=== PATIENT | female | born 1975 | race Caucasian/White ===

== ENCOUNTER → 2021-05-18 | Outpatient (CLI) | payer OTHER ==
[~2021-05-18] MED LIST: AMOX500 PO; CITA10S PO; CRUTCH4 USE; HYDACE5 PO; [UNRECOGNIZED DRUG - OTHER]
== END ==
LOC: LAB 13:10 → LAB SHORT 13:10
DX: L08.9 Local infection of the skin and subcutaneous tissue, unspecified (principal)
CPT/HCPCS: 87070; 87205

== ENCOUNTER → 2024-11-11 | Outpatient (CLI) | payer OTHER ==
[2024-11-11 10:59] LABS: BASOPHILS ABSOLUTE AUTO 0.07 K/mm3 (0.00-0.23); BASOPHILS PERCENT AUTO 1 % (0-2); EOSINOPHILS ABSOLUTE AUTO 0.25 K/mm3 (0.00-0.68); EOSINOPHILS PERCENT AUTO 2 % (0-6); Hematocrit 40.5 % (33.0-51.0); Hemoglobin 13.8 g/dL (11.5-16.0); IMMATURE GRAN ABSOLUTE AUTO 0.05 K/mm3 (0.00-0.10); IMMATURE GRAN PERCENT AUTO 1 % (0-1); LYMPHOCYTES ABSOLUTE AUTO 2.46 K/mm3 (0.84-5.20); LYMPHOCYTES PERCENT AUTO 24 % (21-46); MONOCYTES ABSOLUTE AUTO 0.62 K/mm3 (0.16-1.47); MONOCYTES PERCENT AUTO 6 % (4-13); Mean Corpuscular HGB 26.4 pg (26.0-34.0); Mean Corpuscular HGB Conc 34.1 g/dL (31.5-36.5); Mean Corpuscular Volume 77 fL (80-100); Mean Platelet Volume 11.4 fL (9.1-12.4); NEUTROPHILS ABSOLUTE AUTO 7.04 K/mm3 (1.96-9.15); NEUTROPHILS PERCENT AUTO 67 % (41-73); Platelet Count 265 K/mm3 (150-400); RDW Coefficient Variation 14.3 % (11.7-14.2); RDW Standard Deviation 39.8 fL (35.1-46.3); Red Blood Cell Count 5.23 M/mm3 (3.80-5.20); White Blood Cell Count 10.49 K/mm3 (4.00-11.30)
[2024-11-11 12:52] LABS: Albumin, Blood 3.6 g/dL (3.4-5.0); Albumin/Globulin Ratio 0.9 (0.8-1.8); Bilirubin, Total 0.6 mg/dL (0.1-1.0); Bun/Creatinine Ratio 9.6 (12.0-20.0); Calcium, Blood 8.9 mg/dL (8.5-10.1); Creatinine, Blood 0.73 mg/dL (0.40-1.00); Potassium, Blood 3.9 mmol/L (3.5-5.5); Total Protein, Blood 7.6 g/dL (6.4-8.2)
== END | disposition home or self-care (01) ==
LOC: LAB 10:42 → LAB SHORT 10:42
PROVIDERS: Physician Assistant
DX: R10.9 Unspecified abdominal pain (principal)
CPT/HCPCS: 80053; 83690; 85025

== ENCOUNTER → 2024-11-12 | Outpatient (CLI) | payer OTHER ==
[2024-11-14 01:02] LABS: H. PYLORI BREATH TEST Negative (Negative)
== END ==
LOC: LAB SHORT 07:09 → LAB 07:09
PROVIDERS: Pathology Dermatopathology
DX: K21.9 Gastro-esophageal reflux disease without esophagitis (principal)
CPT/HCPCS: 83013

== ENCOUNTER → 2025-03-13 | Outpatient (CLI) | payer OTHER ==
[2025-03-13 20:16] LABS: Bacterial Vaginosis PCR Negative (NEGATIVE); Candida Group, PCR NOT DETECTED (NOT DETECT); Candida glabrata-krusei, PCR NOT DETECTED (NOT DETECT)
[2025-03-13 20:47] LABS: Chlamydia Trachomatis Vaginal NOT DETECTED (NOT DETECT); Neisseria Gonorrhoea Vaginal NOT DETECTED (NOT DETECT)
== END | disposition home or self-care (01) ==
LOC: LAB SHORT 18:09 → LAB 18:09
PROVIDERS: Family Medicine
DX: N89.8 Other specified noninflammatory disorders of vagina (principal)
CPT/HCPCS: 81515; 87491; 87591

== ENCOUNTER 2025-04-03 08:01 | Observation (INO) | payer OTHER ==
[~2025-04-03] VITALS: Ht 157.5 cm; Wt 114.3 kg
[2025-04-03] VITALS (17 sets, daily range): BP systolic 135–169; BP diastolic 70–100
[2025-04-03 08:57] LABS: Hematocrit 21.7 % (33.0-51.0); Hemoglobin 7.1 g/dL (11.5-16.0); Mean Corpuscular HGB Conc 32.7 g/dL (31.5-36.5); Mean Corpuscular Volume 80 fL (80-100); NRBC ABSOLUTE 1.38 K/mm3 (0.00-0.02); NRBC Auto 6.2 /100 WBC (0.0-0.2); RDW Coefficient Variation 17.7 % (11.7-14.2); RDW Standard Deviation 45.1 fL (35.1-46.3)
[2025-04-03 09:09] LABS: Alanine Aminotransfer (ALT/SGP 27.0 U/L (12-78); Albumin, Blood 3.3 g/dL (3.4-5.0); Albumin/Globulin Ratio 0.8 (0.8-1.8); Anion Gap 10.0 mmol/L (3-11); Aspartate Aminotrans (AST/SGOT 18.0 U/L (12-37); Bilirubin, Total 0.4 mg/dL (0.1-1.0); Blood Urea Nitrogen 6.0 mg/dL (8-24); CO2, Blood 23.0 mmol/L (21-32); Calcium, Blood 8.4 mg/dL (8.5-10.1); Chloride, Blood 106.0 mmol/L (98-108); Creatinine, Blood 0.8 mg/dL (0.40-1.00); Globulin, Blood 4.0 g/dL (2.2-4.0); Glucose, Blood 143.0 mg/dL (70-99); Potassium, Blood 4.4 mmol/L (3.5-5.5); Sodium, Blood 135.0 mmol/L (136-145); Total Protein, Blood 7.3 g/dL (6.4-8.2)
[2025-04-03] MEDS ORDERED: NS 1,000 ML IV SCH (09:10)
[2025-04-03 09:25] LABS: BAND PERCENT MAN 1 % (0-8); BASOPHILS ABSOLUTE MAN 0.00 K/mm3 (0.00-0.23); BASOPHILS PERCENT MAN 0 % (0-2); EOSINOPHILS ABSOLUTE MAN 0.66 K/mm3 (0.00-0.68); EOSINOPHILS PERCENT MAN 3 % (0-6); LYMPHOCYTES ABSOLUTE MAN 6.01 K/mm3 (0.84-5.20); LYMPHOCYTES PERCENT MAN 27 % (21-46); METAMYELOCYTE ABSOLUTE MAN 0.44 K/mm3 (0.00-0.00); METAMYELOCYTE PERCENT MAN 2 % (0-0); MONOCYTES ABSOLUTE MAN 0.44 K/mm3 (0.16-1.47); MONOCYTES PERCENT MAN 2 % (4-13); NEUTROPHILS ABSOLUTE MAN 14.69 K/mm3 (1.96-9.15); SEG NEUTROPHILS PERCENT MAN 65 % (41-73)
[2025-04-03 09:26] LABS: Platelet Count 114 K/mm3 (150-400)
[2025-04-03] MEDS ORDERED: Sod Ferric Gluc Complx/Sucrose 125 MG in NS 100 ML IV ONE (10:00)
[2025-04-03] MEDS ORDERED: BUPROPION XL150 M1 PO (13:14)
[2025-04-03] MEDS ORDERED: FentaNYL Citrate 50 MCG/ML 2 ML Injection ONE (13:35)
[2025-04-03] MEDS ORDERED: Midazolam HCl 1MG / ML 2ML Vial ONE (13:35)
[2025-04-03] MEDS ORDERED: Phenylephrine HCl 100 MCG/ML-NS 10MLSYR (1MG/10ML) ONE (13:43)
[2025-04-03] MEDS ORDERED: Dexamethasone Sod Phos 10 MG/ML 1ML VIAL ONE (13:43)
[2025-04-03] MEDS ORDERED: Ondansetron HCl 2 MG / ML 2ML Vial ONE (13:43)
[2025-04-03] MEDS ORDERED: Metoclopramide HCl 5MG / ML 2ML Vial ONE (13:43)
[2025-04-03] MEDS ORDERED: HYDROmorphone HCl/Pf 1MG SYR ONE (13:46)
[2025-04-03] MEDS ORDERED: Ketorolac Tromethamine 30mg Vial ONE (13:58)
[2025-04-03] MEDS ORDERED: HYDROmorphone HCl/Pf 1MG SYR IV PRN ×3 (14:10→14:15)
[2025-04-03] MEDS ORDERED: FentaNYL Citrate 50 MCG/ML 2 ML Injection IV PRN ×2 (14:10)
[2025-04-03] MEDS ORDERED: Albuterol 2.5 MG/3 ML VIAL INH PRN (14:10)
[2025-04-03] MEDS ORDERED: Ondansetron HCl 2 MG / ML 2ML Vial IV PRN ×2 (14:10→14:20)
[2025-04-03] MEDS ORDERED: Ketorolac Tromethamine 30mg Vial IV PRN ×2 (14:15→14:25)
[2025-04-03] MEDS ORDERED: Metoclopramide HCl 5MG / ML 2ML Vial IV PRN (14:20)
[2025-04-03] MEDS ORDERED: Naloxone HCl 0.4MG / ML 1ML Vial IV PRN (14:20)
--- NOTE | 2025-04-03 15:24 | NUR ---
ASSUMPTION OF CARE @1500 PT AXO4. VSS. DENYING PAIN CURRENTLY. NO VAGINAL DC TO PAD CURRENTLY. TOLERATING PO WATER INTAKE. CRACKERS AT BEDSIDE. ASSESMENT COMPLETED. FAMILY AT BEDSIDE.
[2025-04-03 16:09] LABS: Mean Corpuscular HGB Conc 31.5 g/dL (31.5-36.5); Mean Corpuscular Volume 84 fL (80-100); NRBC ABSOLUTE 1.29 K/mm3 (0.00-0.02); NRBC Auto 6.0 /100 WBC (0.0-0.2); Platelet Count 92 K/mm3 (150-400); RDW Coefficient Variation 17.9 % (11.7-14.2); RDW Standard Deviation 48.0 fL (35.1-46.3)
[2025-04-03 17:01] LABS: Hemoglobin 5.6 g/dL (11.5-16.0)
[2025-04-03 17:02] LABS: Hematocrit 17.8 % (33.0-51.0)
[2025-04-03 17:30] LABS: BASOPHILS ABSOLUTE MAN 0.00 K/mm3 (0.00-0.23); BASOPHILS PERCENT MAN 0 % (0-2); EOSINOPHILS ABSOLUTE MAN 0.42 K/mm3 (0.00-0.68); EOSINOPHILS PERCENT MAN 2 % (0-6); LYMPHOCYTES ABSOLUTE MAN 4.72 K/mm3 (0.84-5.20); LYMPHOCYTES PERCENT MAN 22 % (21-46); MONOCYTES ABSOLUTE MAN 0.42 K/mm3 (0.16-1.47); MONOCYTES PERCENT MAN 2 % (4-13); NEUTROPHILS ABSOLUTE MAN 15.88 K/mm3 (1.96-9.15); SEG NEUTROPHILS PERCENT MAN 74 % (41-73)
--- NOTE | 2025-04-03 18:01 | NUR ---
summary POST ASSUMPTION OF CARE - NO ACUTE CHANGES. VSS. MINIMAL VAGINAL BLEEDING NOTED. HAS BEEN UP TO BATHROOM W/O COMPLICATIONS. H+H BOTH FOUND TO BE CRITICAL - [facility] - PT UPDATED. FLUIDS CONTINUE TO INFUSE. PT HAD ONE EPISODE OF EMESIS - LIMITED BY ZOFRAN ADMINISTRATION. OTHERWISE, PT TALKATIVE IN ROOM WITH VISITORS.
[2025-04-03] MEDS ORDERED: NS 500 ML IV SCH (18:40)
[2025-04-03] MEDS ORDERED: NS 500 ML IV ONE (18:40)
[2025-04-04 00:25] VITALS: BP 130/73
[2025-04-04 00:53] VITALS: BP 138/76
[2025-04-04 04:17] VITALS: BP 140/87
--- NOTE | 2025-04-04 04:57 | NUR ---
SHIFT SUMMARY QUINCY WAS ALERT AND FULLY ORIENTED ON ASSESSMENT. PT VAGINAL BLEEDING MOSTLY RESOLVED SINCE D&C. PT RECIEVED 2 UNITS PRBC'S THIS SHIFT WITHOUT ISSUE. NO OTHER CONDITIONS OR SYMPTOMS NOTED AT THIS TIME. PT NOTED TO HAVE NO FOLLOW UP LABS ORDERED, DR. MONTALVO CONTACTED, LABS ORDERED. PT IS WELL SEEMING AND RESTING IN BED, AWAITING LABS AT THIS TIME.
[2025-04-04 05:30] LABS: Hematocrit 23.9 % (33.0-51.0); Hemoglobin 7.8 g/dL (11.5-16.0); Mean Corpuscular HGB Conc 32.6 g/dL (31.5-36.5); Mean Corpuscular Volume 87 fL (80-100); NRBC ABSOLUTE 0.81 K/mm3 (0.00-0.02); NRBC Auto 3.2 /100 WBC (0.0-0.2); Platelet Count 80 K/mm3 (150-400); RDW Coefficient Variation 18.5 % (11.7-14.2); RDW Standard Deviation 54.6 fL (35.1-46.3)
[2025-04-04 07:25] VITALS: BP 122/72
[2025-04-04] MEDS ORDERED: Acetaminophen650 M1 PO (10:37)
[2025-04-04 11:10] VITALS: BP 151/76
--- NOTE | 2025-04-04 11:16 | NUR ---
SUMMARY ASSUMED CARE OF PT @0700. AXO4. VSS. AMBULATORY. PT STATES NO VAGINAL DC OVERNIGHT, PAD WITH MINIMAL RED BLOOD ON IT. LR INFUSION STOPPED ORDERED. PT HOPEFUL TO DC TOSAY. DR MONTALVO ASSESSED PT. DISCUSSED DROP IN PLATELETS - PLAN TO FOLLOW UP OUT PT. DR NESS'D PT FOR DC. DC INSTRUCTIONS PROVIDED TO PT. PT STATED UNDERSTANDING. VS REMAIN STABLE. IV PULLED OUT. BELONGINGS WITH PT. PT NOW AWAITING SPOUSE TO PICK HER UP AND DC.
--- NOTE | 2025-04-04 11:27 | NUR ---
PT WALKED OUT OF ROOM @3056 WITH SPOUSE - PT WITH BELONGINGS.
== END 2025-04-04 11:24 | disposition home or self-care (01) ==
LOC: ER 08:01 → SURS 08:02
PROVIDERS: Student in an Organized Health Care Education/Training Program; ADMIT Obstetrics & Gynecology
PROC: 0UDB7ZZ Extraction of Endometrium, Via Natural or Artificial Opening (ICD-10-PCS; principal; 2025-04-03 13:30)
DX: N93.9 Abnormal uterine and vaginal bleeding, unspecified (principal); D62 Acute posthemorrhagic anemia; D69.6 Thrombocytopenia, unspecified
CPT/HCPCS: 36415; 36430; 76830; 76856; 80053; 84703; 85025; 85027; 86850; 86900; 86901; 86923; 88305; 96361; 96365; 96375; 99285-25; A9270; G0378; J1100; J1171; J1885; J2250; J2371; J2405; J2704; J2765; J2916; J3010; J7030; J7040; J7120; P9016

== ENCOUNTER 2025-06-09 06:09 | Day surgery (SDC) | payer OTHER ==
[2025-06-09] VITALS (14 sets, daily range): BP systolic 135–161; BP diastolic 70–98
[~2025-06-09] VITALS: Ht 160 cm; Wt 112.4 kg
[~2025-06-09 06:09] MED LIST changes: +Acetaminophen650 M1 PO; +BUPROPION XL150 M1 PO
[2025-06-09] MEDS ORDERED: CeFAZolin Sodium 2,000 MG in NS 100 ML IV SCH (06:10)
[2025-06-09] MEDS ORDERED: Bupivacaine 0.5% W/EPI 1:200000 SDV 30 ML Vial ONE (07:12)
[2025-06-09] MEDS ORDERED: HYDROmorphone HCl/Pf 1MG SYR ONE ×2 (07:13→08:09)
[2025-06-09] MEDS ORDERED: Sugammadex Sodium 200 MG/2ML SDV (100 MG/ML) ONE (07:14)
[2025-06-09] MEDS ORDERED: Midazolam HCl 1MG / ML 2ML Vial ONE (07:14)
[2025-06-09] MEDS ORDERED: FentaNYL Citrate 50 MCG/ML 2 ML Injection ONE (07:14)
[2025-06-09] MEDS ORDERED: Dexamethasone Sod Phos 10 MG/ML 1ML VIAL ONE (07:15)
[2025-06-09] MEDS ORDERED: Rocuronium Bromide 10 MG/ML 5ML Injection IV ONE ×2 (07:15→08:31)
--- NOTE | 2025-06-09 07:37 | NUR ---
PATIENT GAVE GLASSES TO HER SPOUSE FOR SAFE KEEPING. ANCHOR TYPE PEIRCINGS TO CHEST X4 TAPED BY PATIENT PRIOR TO ADMIT PER INSTRUCTIONS FROM DR MONTALVO. WAIVER SIGNED.
[2025-06-09] MEDS ORDERED: CeFAZolin Sodium 1000 mg Vial ONE (07:42)
--- NOTE | 2025-06-09 08:24 | NUR ---
06/09/25 0824 SinghDilcia sebastian ANCEF 1GM IV GIVEN BY DR. DRUMMOND IN ADDITION TO THE ORDERED 2GM OF ANCEF TO ADMINISTER A TOTAL OF ANCEF 3GM IV.
[2025-06-09] MEDS ORDERED: FentaNYL Citrate 50 MCG/ML 2 ML Injection IV PRN ×2 (08:25→08:30)
[2025-06-09] MEDS ORDERED: HYDROmorphone HCl/Pf 1MG SYR IV PRN ×3 (08:30→09:25)
[2025-06-09] MEDS ORDERED: Ondansetron HCl 2 MG / ML 2ML Vial IV PRN ×2 (08:30→09:30)
[2025-06-09] MEDS ORDERED: Ketorolac Tromethamine 30mg Vial ONE (09:03)
[2025-06-09] MEDS ORDERED: FLU VACC TS2025-26(6MOS UP)/PF 45 MCG/0.5 ML SYRINGE IM SCH (09:25)
[2025-06-09] MEDS ORDERED: Naloxone HCl 0.4MG / ML 1ML Vial IV PRN (09:30)
[2025-06-09] MEDS ORDERED: Metoclopramide HCl 5MG / ML 2ML Vial IV PRN (09:30)
[2025-06-09] MEDS ORDERED: Ketorolac Tromethamine 30mg Vial IV PRN (09:50)
--- NOTE | 2025-06-09 10:24 | NUR ---
POST OP ARRIVAL TO SURGICAL UNIT VIA [facility]S TO HOSPITAL BED. DROWSY BUT ANSWERS ?s APPROP. ASSESSMENT CHARTED. WATER OFFERED. SPOUSE AT SIDE.
[2025-06-09] MEDS ORDERED: SIME80CH PO (12:42)
[2025-06-09] MEDS ORDERED: OXYC5 PO (12:42)
[2025-06-09] MEDS ORDERED: IBUP400 PO (12:43)
--- NOTE | 2025-06-09 14:13 | NUR ---
DISCHARGE SNACKING, DRINKING, & VOIDED. PAIN WELL CONTROLLED. SCANT BLOOD NOTED IN URINE. ABD SOFT. FEELS READY FOR DC. ESCORTED OUT VIA WC.
== END 2025-06-09 14:17 | disposition home or self-care (01) ==
LOC: ORSCMMR 06:09 → ORD 07:30 → ORSCMMR 07:30 → SURS 10:02 → ORSCMMR 14:17
PROVIDERS: Obstetrics & Gynecology
PROC: 0TSD0ZZ Reposition Urethra, Open Approach (ICD-10-PCS; principal; 2025-06-09 07:30)
PROC: 0UT9FZZ Resection of Uterus, Via Natural or Artificial Opening With Percutaneous Endoscopic Assistance (ICD-10-PCS; principal; 2025-06-09 07:30)
PROC: 0UT7FZZ Resection of Bilateral Fallopian Tubes, Via Natural or Artificial Opening With Percutaneous Endoscopic Assistance (ICD-10-PCS; principal; 2025-06-09 07:30)
DX: N93.9 Abnormal uterine and vaginal bleeding, unspecified (principal); D50.0 Iron deficiency anemia secondary to blood loss (chronic); N39.3 Stress incontinence (female) (male); N80.03 Adenomyosis of the uterus; D25.9 Leiomyoma of uterus, unspecified; K21.9 Gastro-esophageal reflux disease without esophagitis; E66.01 Morbid (severe) obesity due to excess calories; Z68.41 Body mass index [BMI] 40.0-44.9, adult; Z79.899 Other long term (current) drug therapy
CPT/HCPCS: 86850; 86900; 86901; 88307; A9270; C1771; J0690; J1100; J1171; J1790; J1885; J2250; J2704; J3010; J7120